=== PATIENT | female | born 1995 | race African-American/Black ===

== ENCOUNTER 2021-10-31 15:13 | Emergency (ER) | payer MEDICAID ==
[~2021-10-31] VITALS: Ht 172.7 cm; Wt 98.0 kg
[2021-10-31 15:21] VITALS: BP 140/89
[2021-10-31 15:48] LABS: BASOPHILS % 1.1 % (0.0-2.0); EOSINOPHILS % 0.8 % (0.0-5.0); HEMOGLOBIN. 11.2 g/dL (12.0-16.0); LYMPHOCYTES % 34.8 % (20.0-50.0); MEAN CORPUSCULAR HEMOGLOBIN 30.7 pg (28.0-32.0); MEAN CORPUSCULAR VOLUME 90.6 fL (81.0-99.0); MEAN PLATELET VOLUME 7.9 fl (7.4-10.4); MONOCYTES % 5.1 % (2.0-8.0); NEUTROPHILS % 58.2 % (40.0-76.0); PLATELET 447 x1000/uL (130-400); RED BLOOD CELL COUNT 3.65 mill/uL (4.2-5.4); RED CELL DISTRIBUTION WIDTH 17.3 % (11.6-14.6)
[2021-10-31 15:56] LABS: CHLORIDE 104 mEq/L (98-107)
[2021-10-31 16:19] LABS: B-HCG QUANTITATIVE 9159 mIU/mL (<3)
[2021-10-31 22:11] LABS: CLARITY URINE CLEAR (CLEAR); COLOR URINE YELLOW (YELLOW); KETONES URINE TRACE (NEGATIVE); LEUKOCYTE ESTERASE URINE 1+ (NEGATIVE); NITRITE URINE NEGATIVE (NEGATIVE); OCCULT BLOOD URINE NEGATIVE (NEGATIVE); PH URINE 6.5 (4.5-8.0); PROTEIN URINE NEGATIVE (NEGATIVE); SPECIFIC GRAVITY URINE 1.017 (1.005-1.030)
[2021-11-01] MEDS ORDERED: CEPH250C2 MT (01:03)
[2021-11-01] MEDS ORDERED: ONDA4TAB5 MT (01:04)
== END 2021-11-01 01:23 | disposition home or self-care (01) ==
LOC: ER 15:13
DX: O99.611 Diseases of the digestive system complicating pregnancy, first trimester (principal); K80.20 Calculus of gallbladder without cholecystitis without obstruction; O23.41 Unspecified infection of urinary tract in pregnancy, first trimester; N39.0 Urinary tract infection, site not specified; O99.011 Anemia complicating pregnancy, first trimester; O26.891 Other specified pregnancy related conditions, first trimester; R03.0 Elevated blood-pressure reading, without diagnosis of hypertension; Z3A.01 Less than 8 weeks gestation of pregnancy
CPT/HCPCS: 36415; 76705; 76801; 80053; 81003; 81025; 84702; 85025; 86850; 86900; 99284

== ENCOUNTER 2021-12-06 17:18 | Emergency (ER) | payer MEDICAID ==
[~2021-12-06] VITALS: Ht 172.7 cm; Wt 97.0 kg
[~2021-12-06 17:18] MED LIST: CEPH250C2 MT; ONDA4TAB5 MT
[2021-12-06] MEDS ORDERED: FAMOTIDINE 20MG/2ML VIAL IV STA (17:52)
[2021-12-06] MEDS ORDERED: SODIUM CHLORIDE 0.9% 1,000 ML IV ONE (18:00)
[2021-12-06 18:09] LABS: CLARITY URINE CLEAR (CLEAR); COLOR URINE YELLOW (YELLOW); KETONES URINE NEGATIVE (NEGATIVE); LEUKOCYTE ESTERASE URINE NEGATIVE (NEGATIVE); NITRITE URINE NEGATIVE (NEGATIVE); OCCULT BLOOD URINE NEGATIVE (NEGATIVE); PROTEIN URINE NEGATIVE (NEGATIVE); SPECIFIC GRAVITY URINE 1.008 (1.005-1.030)
[2021-12-06 18:58] LABS: BASOPHILS % 0.3 % (0.0-2.0); EOSINOPHILS % 1.1 % (0.0-5.0); HEMATOCRIT. 32.6 % (36.0-48.0); HEMOGLOBIN. 11.3 g/dL (12.0-16.0); LYMPHOCYTES % 28.7 % (20.0-50.0); MEAN CORPUSCULAR HEMOGLOBIN 32.1 pg (28.0-32.0); MEAN CORPUSCULAR VOLUME 92.8 fL (81.0-99.0); MEAN PLATELET VOLUME 7.9 fl (7.4-10.4); MONOCYTES % 5.5 % (2.0-8.0); NEUTROPHILS % 64.4 % (40.0-76.0); PLATELET 345 x1000/uL (130-400); RED BLOOD CELL COUNT 3.51 mill/uL (4.2-5.4); RED CELL DISTRIBUTION WIDTH 16.4 % (11.6-14.6)
[2021-12-06 19:04] LABS: CHLORIDE 105 mEq/L (98-107)
[2021-12-06 19:28] LABS: B-HCG QUANTITATIVE 94386 mIU/mL (<3)
[2021-12-06 20:45] VITALS: BP 129/69
[2021-12-06] MEDS ORDERED: FAMO-135 MT (20:54)
== END 2021-12-06 21:00 | disposition home or self-care (01) ==
LOC: ER 17:18
DX: O99.611 Diseases of the digestive system complicating pregnancy, first trimester (principal); K80.20 Calculus of gallbladder without cholecystitis without obstruction; Z3A.11 11 weeks gestation of pregnancy
CPT/HCPCS: 36415; 76705; 76801; 80053; 81003; 83690; 84702; 85025; 86850; 86900; 86901; 96374; 99284; J3490; J7030

== ENCOUNTER 2021-12-25 13:54 | Emergency (ER) | payer BC, MEDICAID ==
[~2021-12-25] VITALS: Ht 172.7 cm; Wt 95.9 kg
[~2021-12-25 13:54] MED LIST changes: +FAMO-135 MT
[2021-12-25 17:06] LABS: BASOPHILS % 0.4 % (0.0-2.0); EOSINOPHILS % 0.4 % (0.0-5.0); HEMATOCRIT. 30.5 % (36.0-48.0); HEMOGLOBIN. 10.8 g/dL (12.0-16.0); LYMPHOCYTES % 19.5 % (20.0-50.0); MEAN CORPUSCULAR HEMOGLOBIN 31.9 pg (28.0-32.0); MEAN CORPUSCULAR VOLUME 89.7 fL (81.0-99.0); MONOCYTES % 7.1 % (2.0-8.0); NEUTROPHILS % 72.6 % (40.0-76.0); PLATELET 374 x1000/uL (130-400); RED CELL DISTRIBUTION WIDTH 16.2 % (11.6-14.6)
[2021-12-25 17:14] LABS: CHLORIDE 106 mEq/L (98-107)
[2021-12-25 17:45] LABS: B-HCG QUANTITATIVE 39243 mIU/mL (<3)
[2021-12-25] MEDS ORDERED: ACETAMINOPHEN 325MG TABLET PO ONE (18:30)
[2021-12-25 18:41] VITALS: BP 110/66
[2021-12-25 19:08] LABS: CLARITY URINE CLEAR (CLEAR); COLOR URINE YELLOW (YELLOW); KETONES URINE TRACE (NEGATIVE); LEUKOCYTE ESTERASE URINE 1+ (NEGATIVE); NITRITE URINE NEGATIVE (NEGATIVE); OCCULT BLOOD URINE NEGATIVE (NEGATIVE); PH URINE 6.5 (4.5-8.0); PROTEIN URINE NEGATIVE (NEGATIVE); SPECIFIC GRAVITY URINE 1.015 (1.005-1.030)
[2021-12-25 19:34] LABS: *AMPHETAMINES SCREEN URINE NEGATIVE (NEGATIVE); *BARBITURATES SCREEN URINE NEGATIVE (NEGATIVE); *BENZODIAZEPINES SCREEN URINE NEGATIVE (NEGATIVE); *COCAINE SCREEN URINE NEGATIVE (NEGATIVE); CANNABINOID URINE SCREEN NEGATIVE (NEGATIVE); METHADONE URINE SCREEN NEGATIVE (NEGATIVE); OPIATES URINE SCREEN NEGATIVE (NEGATIVE); PHENCYCLIDINE URINE SCREEN NEGATIVE (NEGATIVE)
[2021-12-25] MEDS ORDERED: NITR-87 MT (20:01)
== END 2021-12-25 20:12 | disposition home or self-care (01) ==
LOC: ER 13:54
DX: O23.42 Unspecified infection of urinary tract in pregnancy, second trimester (principal); N39.0 Urinary tract infection, site not specified; O34.12 Maternal care for benign tumor of corpus uteri, second trimester; O32.1XX0 Maternal care for breech presentation, not applicable or unspecified; R10.2 Pelvic and perineal pain; N85.8 Other specified noninflammatory disorders of uterus; O99.012 Anemia complicating pregnancy, second trimester; Z3A.14 14 weeks gestation of pregnancy
CPT/HCPCS: 36415; 76805; 80053; 80305; 81003; 84702; 85025; 86850; 86900; 87077; 87186; 99284

== ENCOUNTER 2022-01-23 19:31 | Emergency (ER) | payer MEDICAID ==
[~2022-01-23] VITALS: Ht 172.7 cm; Wt 97.6 kg
[~2022-01-23 19:31] MED LIST changes: +NITR-87 MT
[2022-01-23 20:49] VITALS: BP 131/84
== END 2022-01-23 23:06 | disposition home or self-care (01) ==
LOC: ER 19:31
DX: O46.92 Antepartum hemorrhage, unspecified, second trimester (principal); Z3A.14 14 weeks gestation of pregnancy; Z87.19 Personal history of other diseases of the digestive system; Z79.899 Other long term (current) drug therapy
CPT/HCPCS: 99281

== ENCOUNTER 2022-03-23 15:12 | Emergency (ER) | payer BC, MEDICAID ==
[~2022-03-23] VITALS: Ht 167.6 cm; Wt 89.0 kg
[2022-03-23 15:26] VITALS: BP 121/73
== END 2022-03-23 21:43 | disposition left against medical advice (07) ==
LOC: ER 15:12
DX: Z53.21 Procedure and treatment not carried out due to patient leaving prior to being seen by health care provider (principal)

== ENCOUNTER 2022-06-08 17:34 | Observation (INO) | payer BC, MEDICAID ==
[~2022-06-08] VITALS: Ht 172.7 cm; Wt 110.2 kg
[~2022-06-08 17:34] MED LIST changes: -CEPH250C2 MT; +KEPP500 PO; -NITR-87 MT
[2022-06-08] MEDS ORDERED: pnv (19:05)
== END 2022-06-08 20:30 | disposition home or self-care (01) ==
LOC: 8 EST LDRP 17:34
PROVIDERS: ADMIT Obstetrics & Gynecology; ATTEND Obstetrics & Gynecology
DX: O26.893 Other specified pregnancy related conditions, third trimester (principal); R10.2 Pelvic and perineal pain; N89.8 Other specified noninflammatory disorders of vagina; O62.9 Abnormality of forces of labor, unspecified; Z3A.36 36 weeks gestation of pregnancy
CPT/HCPCS: 59025; 99281; G0378

== ENCOUNTER 2022-06-17 15:12 | Observation (INO) | payer BC, MEDICAID ==
[~2022-06-17 15:12] MED LIST changes: +pnv
== END 2022-06-17 18:00 | disposition home or self-care (01) ==
LOC: 8 EST LDRP 15:12
PROVIDERS: ADMIT Obstetrics & Gynecology; ATTEND Obstetrics & Gynecology
DX: O62.9 Abnormality of forces of labor, unspecified (principal); Z3A.38 38 weeks gestation of pregnancy
CPT/HCPCS: 59025; G0378

== ENCOUNTER 2022-06-20 00:08 | Inpatient (IN) | payer BC, MEDICAID ==
[~2022-06-20] VITALS: Ht 172.7 cm; Wt 111.6 kg
[~2022-06-20 00:08] MED LIST changes: -FAMO-135 MT; -ONDA4TAB5 MT
[2022-06-20] MEDS ORDERED: OXYTOCIN 30 UNITS/500ML NS PMX 500 ML IV SCH (02:45)
[2022-06-20] MEDS ORDERED: METHYLERGONOVINE MALEATE 0.2 MG/ML IM PRN (02:45)
[2022-06-20] MEDS ORDERED: BUTORPHANOL TARTRATE 2 MG/ML VIAL IV PRN (02:45)
[2022-06-20] MEDS ORDERED: AMPICILLIN 2GM in NS 100ML 100 ML IV NR (02:45)
[2022-06-20] MEDS ORDERED: CARBOPROST TROMETHAMINE 250 MCG/ML AMPUL IM PRN (02:45)
[2022-06-20] MEDS ORDERED: LIDOCAINE HCL 1% 20ML VIAL (Pyxis) INJ INFIL SCH (02:45)
[2022-06-20] MEDS ORDERED: NALOXONE HCL 0.4 MG/ML 1ML VIAL IM PRN (02:45)
[2022-06-20] MEDS ORDERED: FOLI0.4T6 PO (03:25)
[2022-06-20] MEDS: LACTATED RINGERS 1,000 ML IV SCH ×3 (03:42→19:26)
[2022-06-20 04:59] LABS: BASOPHILS % 0.3 % (0.0-2.0); EOSINOPHILS % 0.7 % (0.0-5.0); HEMOGLOBIN. 11.8 g/dL (12.0-16.0); LYMPHOCYTES % 23.4 % (20.0-50.0); MEAN CORPUSCULAR VOLUME 95.2 fL (81.0-99.0); MEAN PLATELET VOLUME 7.8 fl (7.4-10.4); NEUTROPHILS % 68.6 % (40.0-76.0); PLATELET 354 x1000/uL (130-400); RED BLOOD CELL COUNT 3.57 mill/uL (4.2-5.4); RED CELL DISTRIBUTION WIDTH 14.4 % (11.6-14.6)
[2022-06-20 05:37] LABS: INR 0.9; PARTIAL THROMBOPLASTIN TIME 27.1 sec (23.4-31.0)
[2022-06-20 07:38] LABS: CLARITY URINE CLEAR (CLEAR); COLOR URINE YELLOW (YELLOW)
[2022-06-20 07:39] LABS: KETONES URINE NEGATIVE (NEGATIVE); LEUKOCYTE ESTERASE URINE 1+ (NEGATIVE); NITRITE URINE NEGATIVE (NEGATIVE); OCCULT BLOOD URINE NEGATIVE (NEGATIVE); PROTEIN URINE NEGATIVE (NEGATIVE); SPECIFIC GRAVITY URINE 1.005 (1.005-1.030); UROBILINOGEN URINE 0.2 E.U./dL (0.2-1.0)
[2022-06-20 09:00] LABS: *AMPHETAMINES SCREEN URINE NEGATIVE (NEGATIVE); *BARBITURATES SCREEN URINE NEGATIVE (NEGATIVE); *BENZODIAZEPINES SCREEN URINE NEGATIVE (NEGATIVE); *COCAINE SCREEN URINE NEGATIVE (NEGATIVE); CANNABINOID URINE SCREEN NEGATIVE (NEGATIVE); METHADONE URINE SCREEN NEGATIVE (NEGATIVE); OPIATES URINE SCREEN NEGATIVE (NEGATIVE); PHENCYCLIDINE URINE SCREEN NEGATIVE (NEGATIVE)
[2022-06-20] MEDS ORDERED: LEVETIRACETAM 500MG TABLET PO SCH (09:00)
[2022-06-20] MEDS: AMPICILLIN 1,000 MG in SODIUM CHLORIDE 0.9% 50 ML IV SCH ×3 (09:03→21:06)
[2022-06-20] MEDS ORDERED: ROPIVACAINE HCL/PF EPIDURAL 200 ML EPI SCH (10:15)
[2022-06-20 14:15] LABS: HEPATITIS B SURFACE ANTIGEN NEGATIVE
[2022-06-20] MEDS ORDERED: ROPIVACAINE HCL/PF EPIDURAL 200 ML EPI ONE (17:00)
[2022-06-20] MEDS ORDERED: FENTANYL CITRATE/PF 50MCG/ML 2ML VIAL ONE (17:00)
[2022-06-20] MEDS ORDERED: LIDOCAINE HCL 2%/EPINEPHRINE 1:100,000 20 ML VIAL INFIL ONE (17:00)
[2022-06-20] MEDS ORDERED: RHO(D) IMMUNE GLOBULIN 300 MCG/SYR IM PRN (22:30)
[2022-06-20] MEDS ORDERED: IBUPROFEN 400MG TABLET PO PRN (22:30)
[2022-06-21 00:45] VITALS: BP 125/80
[2022-06-21 01:20] VITALS: BP 123/82
[2022-06-21] MEDS: IBUPROFEN 800MG TABLET PO PRN ×3 (01:25→21:19)
[2022-06-21 03:30] VITALS: BP 113/60
[2022-06-21 06:32] LABS: BASOPHILS % 0.4 % (0.0-2.0); EOSINOPHILS % 0.3 % (0.0-5.0); HEMATOCRIT. 32.7 % (36.0-48.0); HEMOGLOBIN. 11.6 g/dL (12.0-16.0); LYMPHOCYTES % 12.5 % (20.0-50.0); MEAN CORPUSCULAR HEMOGLOBIN 33.1 pg (28.0-32.0); MEAN CORPUSCULAR VOLUME 93.8 fL (81.0-99.0); MEAN PLATELET VOLUME 7.7 fl (7.4-10.4); MONOCYTES % 6.7 % (2.0-8.0); NEUTROPHILS % 80.1 % (40.0-76.0); PLATELET 321 x1000/uL (130-400); RED BLOOD CELL COUNT 3.49 mill/uL (4.2-5.4); RED CELL DISTRIBUTION WIDTH 14.5 % (11.6-14.6)
[2022-06-21] MEDS ORDERED: FERROUS SULFATE 325MG TABLET PO SCH (07:30)
[2022-06-21 08:00] VITALS: BP 120/77
[2022-06-21] MEDS: PRENATAL VIT/FE FUMARATE/FA TABLET PO SCH (09:48)
[2022-06-21] MEDS: LEVETIRACETAM 500MG/5ML CUP PO SCH ×2 (09:49→21:19)
[2022-06-21 16:00] VITALS: BP 106/77
[2022-06-21 20:00] VITALS: BP 108/62
[2022-06-22 04:00] VITALS: BP 122/72
[2022-06-22] MEDS ORDERED: FERR-63 PO (06:43)
[2022-06-22] MEDS ORDERED: IBUP-2030 PO (06:43)
[2022-06-22] MEDS ORDERED: NORE0.3520 MT (06:44)
[2022-06-22 08:15] VITALS: BP 121/69
[2022-06-22] MEDS: PRENATAL VIT/FE FUMARATE/FA TABLET PO SCH (08:40)
[2022-06-22] MEDS: LEVETIRACETAM 500MG/5ML CUP PO SCH (08:40)
[2022-06-22 08:43] VITALS: BP 122/72
[2022-06-22] MEDS: IBUPROFEN 800MG TABLET PO PRN (08:43)
== END 2022-06-22 11:30 | disposition home or self-care (01) | DRG 806 ==
LOC: OBSVTOIN 00:08 → 8 EST LDRP 00:08 → 8EST 06-21 01:39
PROVIDERS: ADMIT Obstetrics & Gynecology; ATTEND Obstetrics & Gynecology
PROC: 10E0XZZ Delivery of Products of Conception, External Approach (ICD-10-PCS; principal; 2022-06-20)
PROC: 3E0R3BZ Introduction of Anesthetic Agent into Spinal Canal, Percutaneous Approach (ICD-10-PCS; 2022-06-20)
PROC: 00HU33Z Insertion of Infusion Device into Spinal Canal, Percutaneous Approach (ICD-10-PCS; 2022-06-20)
DX: O99.02 Anemia complicating childbirth (principal); O99.354 Diseases of the nervous system complicating childbirth; Z37.0 Single live birth; G40.909 Epilepsy, unspecified, not intractable, without status epilepticus; Z20.822 Contact with and (suspected) exposure to COVID-19; Z3A.38 38 weeks gestation of pregnancy; Z82.49 Family history of ischemic heart disease and other diseases of the circulatory system; Z91.018 Allergy to other foods
CPT/HCPCS: 36415; 76805; 76818; 80305; 81003; 85025; 86592; 86762; 86850; 86900; 87340; 87426; G0378; J0290; J2210; J2795; J3010; J3490; J7120; J2590

== ENCOUNTER 2023-12-05 14:47 | Emergency (ER) | payer BC, MEDICAID ==
[~2023-12-05] VITALS: Ht 172.7 cm; Wt 104.0 kg
[~2023-12-05 14:47] MED LIST changes: +FERR-63 PO; +FOLI0.4T6 PO; +IBUP-2030 PO; +NORE0.3520 MT
[2023-12-05 15:38] VITALS: O2SAT 100
[2023-12-05] MEDS ORDERED: KETOROLAC 15MG/ML VIAL IM ONE (15:45)
[2023-12-05 16:54] VITALS: TEMP 98.3
[2023-12-05] MEDS ORDERED: LIDO700A15 TP (18:15)
[2023-12-05] MEDS ORDERED: NAPR-1176 MT (18:15)
[2023-12-05] MEDS: KETOROLAC 15MG/ML VIAL IM NR (18:59)
[2023-12-05 19:18] VITALS: BP 108/69; PULSE 88; RESP 14
== END 2023-12-05 19:26 | disposition home or self-care (01) ==
LOC: ER 14:47
DX: M25.511 Pain in right shoulder (principal); R07.81 Pleurodynia; Z87.19 Personal history of other diseases of the digestive system; Z79.899 Other long term (current) drug therapy; V49.49XA Driver injured in collision with other motor vehicles in traffic accident, initial encounter; Y93.89 Activity, other specified; Y92.89 Other specified places as the place of occurrence of the external cause; Y99.8 Other external cause status
CPT/HCPCS: 81025; 73030; 96372; 99283; J1885; Z7610; 71045